=== PATIENT | female | born 1970 | race Caucasian/White ===

== ENCOUNTER → 2020-04-25 | Outpatient (CLI) | payer OTHER ==
--- NOTE | 2020-04-25 17:29 | RAD ---
Two-view left ankle dated 04/25/2020. No comparison available. Clinical indication: Lateral ankle pain. FINDINGS:. 2 views of left ankle show normal bony alignment. No displaced fracture. No acute osseous or articula r abnormality. Mild soft tissue swelling. Talar dome is intact. IMPRESSION: Soft tissue swelling with no apparent underlying acute bony abnormality. Electronically signed by: Henry Mott MD (04/25/2020 5:27 PM) [id number]
== END ==
LOC: RAD 17:13
PROVIDERS: ATTEND Specialist
DX: M25.572 Pain in left ankle and joints of left foot (principal); M79.89 Other specified soft tissue disorders
CPT/HCPCS: 73600

== ENCOUNTER 2021-06-22 00:39 | Emergency (ER) | payer OTHER ==
[~2021-06-22] VITALS: Ht 154.9 cm; Wt 74.1 kg
--- NOTE | 2021-06-22 00:53 | PHYS DOC ---
Past History Past Medical History: Gallstones Past Medical History Abnormal Cervical Pap exam General Adult HPI: HPI: ".. I having really severe abdomen pain tonight.. it more on the Lt. side... I just have completed a colonoscopy earlier a week ago may remove the polyp etc. had diverticulosis but no diverticulitis. Also had a recent diagnosis of abnormal Pap exam and I recommended a biopsy of my cervix. But the pain really got bad after biscuits and gravy today... ".." I have some Rt upper pain... also here in the pit of my stomach.. :" Patient is a 50 year old female who presents with above hx and complaints of abdoment pain, nausea, chills, myalgia, arthralgia, myalgia... No recent travel. No specific ill contacts. No one else in the home are ill. Patient denies any trauma. Patient has had a recent colonoscopy and Pap exam. Patient did get COVID vaccination but did not get flu vaccination this season. Eyes any tarry stools. No history immunosuppression. No history of abdomen surgeries. Review of Systems: Review of Systems: Constitutional: Denies fever or chills Eyes: Denies change in visual acuity HENT: Denies nasal congestion or sore throat Respiratory: Denies cough or shortness of breath Cardiovascular: Denies chest pain or edema GI: Complains of severe generalized abdominal pain, nausea, vomiting,. Denies bloody stools or diarrhea : Denies dysuria Musculoskeletal: Denies back pain or joint pain Integument: Denies rash Neurologic: Denies headache, focal weakness or sensory changes Endocrine: Denies polyuria or polydipsia Lymphatic: Denies swollen glands Psychiatric: Denies depression or anxiety Family History: Family History: Noncontributory to presentation Current Medications: Current Meds: See nursing for home meds Allergies: Allergies: Does not have a true allergy to morphine but does not like the way it makes her feel Physical Exam: PE: Constitutional: Moderate acute distress, non-toxic appearance. [] HENT: Normocephalic, atraumatic, bilateral external ears normal, oropharynx moist, no oral exudates, nose normal. [] Eyes: PERRLA, EOMI, conjunctiva normal, no discharge. [] Neck: Normal range of motion, no tenderness, supple, no stridor. [] Cardiovascular:Heart rate regular rhythm, no murmur [] Lungs & Thorax: Bilateral breath sounds equal apex on auscultation [] Abdomen: Bowel sounds hyperactive soft, generalized tenderness, no masses, no pulsatile masses. Pain seems to be localized in left upper quadrant. Rebound left upper quadrant. Skin: Warm, dry, no erythema, no rash. [] Back: No tenderness, no CVA tenderness. [] Extremities: No tenderness, no cyanosis, no clubbing, ROM intact, no edema. Mild bilateral psoas. No cording. Neurologic: Alert and oriented X 3, normal motor function, normal sensory function, no focal deficits noted. [] Psychologic: Affect anxious, judgement normal, mood normal. [] EKG: EKG: My interpretation of EKG shows a sinus rhythm at 66 bpm. No acute morphology. Time of EKG is 136 [] Radiology/Procedures: Radiology/Procedures: [][place] [address] IMAGING REPORT Signed PATIENT: VIOLETA LUZ ACCOUNT: [id number] : 1970 LOCATION: ER AGE: 50 SEX: F EXAM STATUS: REG ER ORD. PHYSICIAN: AURELIO MARIE MD REASON: OMNI 300,75ML IV.OMNI 240,30ML PO.Pain, gallstones on xray PROCEDURE: CT ABD PELV W/ORAL&IV CONTRAST CT abdomen and pelvis with contrast PQRS statement: CT scans at this facility use dose reduction including either automated exposure control, iterative reconstructions, and /or weight based radiation dosing via mA and kV modification when appropriate to reduce radiation dose to as low as reasonably achievable. HISTORY: Abdominal pain. Gallstones. Contrast: 75 mL Omnipaque 300 intravenous contrast, and oral contrast. Abdomen findings: There is a 3 cm gallstone with adjacent small gallstones. The gallbladder fundus there appears to be some thin linear wall calcification which may indicate mild changes of porcelain gallbladder. There is other indistinct density at the gallbladder neck which could be sludge although intraluminal mass lesion cannot be excluded as this does not layer on the images. There are suspected choledocholithiasis with a 3 mm calcification at the lower common bile duct dependently on axial image 28 and coronal image there may be mild biliary ductal dilation as well. Pancreas, spleen, adrenal glands, kidneys and liver are normal. There is questionable fold thickening of the duodenum and jejunum at the upper abdomen there is no bowel obstruction. Appendix normal. Aorta and iliac artery calcified plaque. No abdominal fluid or adenopathy. Lung bases and bones are normal. Pelvis findings: Uterus, ovaries, bladder, rectum and bones are normal. No pelvic fluid or adenopathy. IMPRESSION: 1. There is mild biliary duct dilation, likely associated with choledoc holithiasis with a 3 mm calculus at the distal common bile duct. This could be further assessed with sonography or MR imaging. 2. Gallstones. Focal wall calcification of the gallbladder fundus consistent with porcelain gallbladder, which can be associated with an increased risk of future gallbladder malignancy. There is an indistinct intraluminal density at the gallbladder neck may be sludge, although an underlying intraluminal soft tissue density mass cannot be excluded. This could be further assessed with sonography or MR imaging. 3. Questionable fold thickening of the duodenum and jejunum at the upper abdomen, this could be indicative of an enteritis. No bowel obstruction. 4. The appendix is normal. Electronically signed by: Jessica Carroll MD (06/22/2021 4:18 AM) [facility] DICTATED AND SIGNED BY: JESSICA CARROLL MD DATE: 06/22/21409 CC: AURELIO MARIE MD; MIMI CAMACHO DO, MPH ~ [address] [address] IMAGING REPORT Signed PATIENT: VIOLETA LUZ ACCOUNT: [id number] : 1970 LOCATION: ER AGE: 50 SEX: F EXAM STATUS: REG ER ORD. PHYSICIAN: AURELIO MARIE MD REASON: pain PROCEDURE: ACUTE ABDOMEN SERIES PA chest and AP upright and supine HISTORY: Abdominal pain. FINDINGS: Cardiac mediastinal silhouette normal. Tiny calcified granuloma right upper lobe overlapping the posterior seventh rib. No pulmonary opacities. No pleural effusions. No pneumoperitoneum. There are spherical calcifications right upper quadrant likely gallstones measuring up to 3.5 cm. Mild gas within the stomach and large and small bowel. No dilated bowel loops or abnormal air-fluid levels. Indeterminate pelvic calcifications most likely phleboliths. L3-L4 left lateral disc linear osteophyte.. IMPRESSION: No acute process in the chest. No bowel obstruction evident. Gallstones. Electronically signed by: Jessica Carroll MD (06/22/2021 1:24 AM) [facility] DICTATED AND SIGNED BY: JESSICA CARROLL MD DATE: 06/22/21120 CC: AURELIO MARIE MD; MIMI CAMACHO DO, MPH ~ Heart Score: C/O Chest Pain: N/A Risk Factors: Risk Factors: DM, Current or recent (<one month) smoker, HTN, HLP, family history of CAD, obesity. Risk Scores: Score 0 - 3: 2.5% MACE over next 6 weeks - Discharge Home Score 4 - 6: 20.3% MACE over next 6 weeks - Admit for Clinical Observation Score 7 - 10: 72.7% MACE over next 6 weeks - Early Invasive Strategies Course & Med Decision Making: Course & Med Decision Making Pertinent Labs and Imaging studies reviewed. (See chart for details) Impression: 1. Abdomen Pain 2. Mild Elevation AST 137, ALT 79, Direct Jaren 0.3 3. Gall Stones- Porecelain Gallbladder 4. Duodenum and jejunum- Thicken- enteritits [] Dragon Disclaimer: Dragmartinez Disclaimer: This electronic medical record was generated, in whole or in part, using a voice recognition dictation system. Departure Departure: Referrals: MIMI CAMACHO DO, MPH (PCP) Scripts Hydrocodone/Ibuprofen (HYDROCODONE-IBUPROFEN 7.5-200 ) 1 Each Tablet 1 TAB PO PRN Q6HRS PRN for PAIN, #30 TAB 0 Refills Prov: AURELIO MARIE MD 06/22/21 Ondansetron (ONDANSETRON ODT) 4 Mg Tab.rapdis 8 MG PO QIDPRN for nv, #30 TAB Prov: AURELIO MARIE MD 06/22/21 Famotidine (PEPCID) 20 Mg Tablet 20 MG PO BID for gerd,gastritis for 30 Days, #60 TAB Prov: AURELIO MARIE MD 06/22/21 AURELIO MARIE MD Jun 22, 2021 00:53
[2021-06-22 01:18] LABS: BASO # 0.2 x10^3/uL (0.0-0.2); BASO % 3 % (0-3); EOS # 0.2 x10^3/uL (0.0-0.7); EOS % 3 % (0-3); HEMATOCRIT 44.3 % (36.0-47.0); LYMPH # 2.1 x10^3/uL (1.0-4.8); LYMPH % 30 % (24-48); MEAN CORPUSCULAR HEMOGLOBIN 32 pg (25-35); MEAN CORPUSCULAR HGB CONC 34 g/dL (31-37); MEAN CORPUSCULAR VOLUME 94 fL (79-100); MONO # 0.4 x10^3/uL (0.0-1.1); MONO % 5 % (0-9); NEUT # 4.2 x10^3uL (1.8-7.7); NEUT % 59 % (31-73); PLATELET COUNT 220 x10^3/uL (140-400); RED BLOOD COUNT 4.71 x10^6/uL (3.50-5.40); RED CELL DISTRIBUTION WIDTH 12.9 % (11.5-14.5); WHITE BLOOD COUNT 7.1 x10^3/uL (4.0-11.0)
[2021-06-22] MEDS: IV RINGERS SOLUTION,LACTATED 1,000 ML IV SCH (01:25)
[2021-06-22] MEDS: ONDANSETRON PF 4 MG/2 ML VIAL. IVP ONE (01:25)
[2021-06-22] MEDS: FAMOTIDINE 20 MG/2 ML VIAL IVP ONE (01:26)
--- NOTE | 2021-06-22 01:27 | RAD ---
PA chest and AP upright and supine HISTORY: Abdominal pain. FINDINGS: Cardiac mediastinal silhouette normal. Tiny calcified granuloma right upper lobe overlappin g the posterior seventh rib. No pulmonary opacities. No pleural effusions. No pneumoperitoneum. There are spherical calcifications right upper quadrant likely gallstones measuring up to 3.5 cm. Mild gas within the stomach and large and small bowel. No dilated bowel loops or abnormal air-fluid levels. I ndeterminate pelvic calcifications most likely phleboliths. L3-L4 left lateral disc linear osteophyte .. IMPRESSION: No acute process in the chest. No bowel obstruction evident. Gallstones. Electronically signed by: Jeremy Carroll MD (06/22/2021 1:24 AM) [facility]
[2021-06-22] MEDS: KETOROLAC 30 MG/ML VIAL. IVP ONE (01:48)
[2021-06-22 01:53] LABS: CALCIUM 9.1 mg/dL (8.5-10.1); CREATININE 0.7 mg/dL (0.6-1.0); GFR 88.9; POTASSIUM 3.8 mmol/L (3.5-5.1)
--- NOTE | 2021-06-22 01:55 | EKG ---
[address] [address] Test Date: 2021-06-22 Test Time: 01:36:35 Pat Name: VIOLETA LUZ Department: Room: Gender: F [employer]: : 1970 Requested By: AURELIO MARIE Order Number: [id number] Reading MD: Chauncey Fischer Measurements Intervals [place] Rate: 68 P: 43 MI: 146 QRS: 13 QRSD: 80 T: 39 QT: 394 QTc: 419 Interpretive Statements SINUS RHYTHM NO SPECIFIC ECG ABNORMALITIES RI6.01 No previous ECG available for comparison Electronically Signed On 06-24-2021 15:12:02 CDT by Chauncey Fischer
[2021-06-22 01:58] LABS: ALBUMIN 3.9 g/dL (3.4-5.0); DIRECT BILIRUBIN 0.3 mg/dL (0.0-0.2); TOTAL BILIRUBIN 0.6 mg/dL (0.2-1.0); TOTAL PROTEIN 6.4 g/dL (6.4-8.2)
[2021-06-22 02:05] LABS: INFLUENZA A PATIENT NEGATIVE (NEGATIVE); INFLUENZA B PATIENT NEGATIVE (NEGATIVE)
[2021-06-22 02:18] LABS: AMPHETAMINE/METHAMPHETAMINE NEG (NEG); BARBITURATES NEG (NEG); BENZODIAZEPINES NEG (NEG); CANNABINOIDS NEG (NEG); COCAINE NEG (NEG); METHADONE NEG (NEG); OPIATES NEG (NEG); PHENCYCLIDINE NEG (NEG)
[2021-06-22 02:29] LABS: BACTERIA,URINE 0 /HPF (0-FEW); CLARITY,URINE CLEAR; COLOR,URINE AMBER; GLUCOSE,URINE NEG (NEG); NITRITE,URINE NEG (NEG); RBC,URINE 0 /HPF (0-2); SQUAMOUS EPITHELIAL CELL,UR FEW /LPF; UROBILINOGEN,URINE >=8.0 mg/dL (0.2 mg/dL); WBC,URINE 0 /HPF (0-4)
[2021-06-22] MEDS ORDERED: IOHEXOL 240 MG/ML 50ML VIAL. ONE (02:39)
[2021-06-22] MEDS ORDERED: CONTRAST GIVEN. MC PRN (02:45)
[2021-06-22] MEDS: IOHEXOL 300 MG/ML 75 ML VIAL. IV ONE (03:55)
--- NOTE | 2021-06-22 04:20 | RAD ---
CT abdomen and pelvis with contrast PQRS statement: CT scans at this facility use dose reduction including either automated exposure cont rol, iterative reconstructions, and /or weight based radiation dosing via mA and kV modification when appropriate to reduce radiation dose to as low as reasonably achievable. HISTORY: Abdominal pain. Gallstones. Contrast: 75 mL Omnipaque 300 intravenous contrast, and oral contrast. Abdomen findings: There is a 3 cm gallstone with adjacent small gallstones. The gallbladder fundus th ere appears to be some thin linear wall calcification which may indicate mild changes of porcelain ga llbladder. There is other indistinct density at the gallbladder neck which could be sludge although i ntraluminal mass lesion cannot be excluded as this does not layer on the images. There are suspected choledocholithiasis with a 3 mm calcification at the lower common bile duct dependently on axial imag e 28 and coronal image there may be mild biliary ductal dilation as well. Pancreas, spleen, adrenal g lands, kidneys and liver are normal. There is questionable fold thickening of the duodenum and jejunu m at the upper abdomen there is no bowel obstruction. Appendix normal. Aorta and iliac artery calcifi ed plaque. No abdominal fluid or adenopathy. Lung bases and bones are normal. Pelvis findings: Uterus, ovaries, bladder, rectum and bones are normal. No pelvic fluid or adenopathy . IMPRESSION: 1. There is mild biliary duct dilation, likely associated with choledocholithiasis with a 3 mm calcul us at the distal common bile duct. This could be further assessed with sonography or MR imaging. 2. Gallstones. Focal wall calcification of the gallbladder fundus consistent with porcelain gallbladd er, which can be associated with an increased risk of future gallbladder malignancy. There is an beth stinct intraluminal density at the gallbladder neck may be sludge, although an underlying intralumina l soft tissue density mass cannot be excluded. This could be further assessed with sonography or MR i maging. 3. Questionable fold thickening of the duodenum and jejunum at the upper abdomen, this could be indic ative of an enteritis. No bowel obstruction. 4. The appendix is normal. Electronically signed by: Jeremy Carroll MD (06/22/2021 4:18 AM) [facility]
[2021-06-22] MEDS ORDERED: HYDR-1179 PO (04:51)
[2021-06-22] MEDS ORDERED: FAMO-63 PO (04:51)
[2021-06-22] MEDS ORDERED: ONDA4TAB12 PO (04:51)
[2021-06-22 05:10] VITALS: BP 122/84
== END 2021-06-22 05:15 | disposition home or self-care (01) ==
LOC: ER 00:39
DX: K80.20 Calculus of gallbladder without cholecystitis without obstruction (principal); R79.89 Other specified abnormal findings of blood chemistry; Z20.822 Contact with and (suspected) exposure to COVID-19
CPT/HCPCS: 36415; 74022; 74177; 80048; 80076; 80307; 81001; 81025; 82550; 83690; 84484; 85025; 85610; 85730; 87428; 93005; 96361; 96374; 96375; 99285; J1885; J2405; J3010; J3490; J7120; Q9967